=== PATIENT | female | born 1995 | race Caucasian/White ===

== ENCOUNTER 2016-06-02 20:16 | Day surgery (SDC) | payer BC ==
[~2016-06-02] VITALS: Ht 157.5 cm; Wt 77.7 kg
[~2016-06-02 20:16] MED LIST: LEVO500T69 PO; NAPR-243 PO; ONDA-42 SL; PHEN200T27 PO; SULF-222 PO
[2016-06-02] MEDS ORDERED: OXCA150T3 PO (21:00)
[2016-06-02] MEDS ORDERED: SERT50TA2 PO (21:00)
[2016-06-02] MEDS ORDERED: KETOROLAC 30 MG/ML VIAL IVP STA (21:16)
[2016-06-02 21:19] LABS: BILIRUBIN,URINE NEGATIVE (NEGATIVE); KETONES,URINE NEGATIVE (NEGATIVE); LEUKOCYTE ESTERASE ,URINE 1+ (NEGATIVE); NITRITE,URINE NEGATIVE (NEGATIVE); PH,URINE 6 (5-9); PROTEIN,URINE 1+ (NEGATIVE); UROBILINOGEN,URINE NORMAL (NORMAL)
[2016-06-02 21:24] LABS: WBC,URINE 0-2 /HPF
[2016-06-02 21:28] LABS: BASOPHILS % (AUTO) 0 % (0-10); EOSINOPHILS % (AUTO) 0 % (0-10); LYMPHOCYTES # (AUTO) 1.2 X 10^3 (1.0-4.0); LYMPHOCYTES % (AUTO) 6 % (12-44); MEAN CORPUSCULAR HEMOGLOBIN 32 PG (25-34); MEAN CORPUSCULAR HGB CONC 35 G/DL (32-36); MEAN CORPUSCULAR VOLUME 92 FL (80-99); MEAN PLATELET VOLUME 9.6 FL (7.4-10.4); MONOCYTES % (AUTO) 6 % (0-12); NEUTROPHILS # (AUTO) 16.3 X 10^3 (1.8-7.8); NEUTROPHILS % (AUTO) 88 % (42-75); PLATELET COUNT 243 10^3/uL (130-400); RED BLOOD COUNT 3.94 10^6/uL (4.35-5.85); RED CELL DISTRIBUTION WIDTH 12.8 % (10.0-14.5); WHITE BLOOD COUNT 18.5 10^3/uL (4.3-11.0)
[2016-06-02] MEDS ORDERED: ONDANSETRON 4 MG/2 ML (SDV) Z0FRAN IVP ONE (21:30)
[2016-06-02] MEDS ORDERED: NS 100 ML (IVPB) BAG IV ONE (21:45)
[2016-06-02] MEDS ORDERED: IOHEXOL 350 MG/ML 100 ML (OMNIPAQUE 350) VIAL IV ONE (21:45)
[2016-06-02 21:48] LABS: BAND NEUTROPHILS 0 %; BASOPHILS % (MANUAL) 0 %; EOSINOPHILS % (MANUAL) 0 %; LYMPHOCYTES % (MANUAL) 6 %; NEUTROPHILS % (MANUAL) 93 %
[2016-06-02 21:52] LABS: ALANINE AMINOTRANSFERASE 15 U/L (0-55); ALBUMIN 3.7 G/DL (3.2-4.5); AMYLASE 77 U/L (25-125); ANION GAP 7 MMOL/L (5-14); ASPARTATE AMINO TRANSFERASE 16 U/L (5-34); BILIRUBIN,TOTAL 0.2 MG/DL (0.1-1.0); BLOOD UREA NITROGEN 15 MG/DL (7-18); BUN/CREATININE RATIO 19; CALCIUM 8.8 MG/DL (8.5-10.1); CARBON DIOXIDE 23 MMOL/L (21-32); CHLORIDE 107 MMOL/L (98-107); CREATININE SERUM 0.81 MG/DL (0.60-1.30); GFR ESTIMATED > 60; GLUCOSE 122 MG/DL (70-105); LIPASE 19 U/L (8-78); POTASSIUM 4.3 MMOL/L (3.6-5.0); SODIUM 137 MMOL/L (135-145); TOTAL PROTEIN 5.9 G/DL (6.4-8.2)
--- NOTE | 2016-06-02 21:53 | Diagnostic Imaging Report ---
INDICATION: Pelvic pain. Difficulty breathing. COMPARISON: 06/05/2013. FINDINGS: Visible lungs are clear. No pleural effusion or pneumothorax. Normal cardiomediastinal silhouette and pulmonary vasculature. No free intraperitoneal air. Nonobstructive bowel gas pattern. Small volume of colonic stool. Normal regional skeleton. IMPRESSION: 1. Normal chest. 2. Normal abdomen. Dictated by: Dictated on workstation # [id number]
--- NOTE | 2016-06-02 22:08 | Diagnostic Imaging Report ---
PROCEDURE: CT abdomen and pelvis with contrast, rule out appendicitis. TECHNIQUE: Multiple contiguous axial images were obtained through the abdomen and pelvis after the administration of intravenous contrast. INDICATION: Right-sided pelvic pain. COMPARISON: 06/05/2013. FINDINGS: Lung bases are clear. No pleural or pericardial effusion. There is a small amount of abdominal ascites which has attenuation above simple fluid and likely represents a small amount of hemorrhage. There is a right ovarian cyst with peripheral hyperattenuation measuring 1.4 x 1.0 cm, likely due to ruptured hemorrhagic ovarian cyst. This likely accounts for the fluid seen throughout the abdomen. The appendix is normal and in the expected position in the right lower quadrant. The liver, gallbladder, spleen and pancreas are normal. The adrenals are normal. Stable simple cysts within the left kidney, largest measuring up to 1.8 cm. No obstructive uropathy. The urinary bladder is normal. Uterus is normal in appearance for patient's age. Normal-caliber abdominal aorta. No abdominal or pelvic lymphadenopathy. Normal regional skeleton. IMPRESSION: 1. Findings most compatible with ruptured hemorrhagic right ovarian cyst, with a small amount of fluid and hemorrhage within the pelvis and abdomen. Recommend assessment of patient's beta hCG to rule out ruptured ectopic . 2. Normal appendix. Dictated by: Dictated on workstation # [id number]
[2016-06-03] VITALS: BP 107/60
[2016-06-03] MEDS ORDERED: KETOROLAC 30 MG/ML VIAL IVP PRN (00:30)
[2016-06-03] MEDS ORDERED: ONDANSETRON 4 MG/2 ML (SDV) Z0FRAN IV PRN ×2 (00:30→17:15)
[2016-06-03] MEDS: D5 1/2 NS 1000 ML IV SOLUTION 1,000 ML IV SCH ×2 (00:44→07:55)
--- NOTE | 2016-06-03 01:02 | ED Abdominal Pain ---
General Chief Complaint: Abdominal/GI Problems Stated Complaint: RUPTERED R OVARIAN CYST Nursing Triage Note: pt reports pelvic pain after intercourse around 1600 today. pt reports pain has gotten significantly worse and mainly on the r side that radiates to her back. Sepsis Screen: No Definite Risk Source of Information: Patient History of Present Illness Time Seen By Provider: 21:02 Initial Comments C/O LOWER ABDOMINAL PAIN RADIATING TO RIGHT FLANK AND RUQ AND RIGHT SHOULDER/ SCAPULAR AREA PAIN BEGAN AROUND 1600 TODAY AFTER INTERCOURSE PAIN IS WORSE WITH DEEP BREATHS + NAUSEA,NO VOMITING NORMAL BM TODAY NO URINARY SYMPTOMS NO FEVER NO VAGINAL BLEEDING OR DISCHARGE NO HISTORY OF SIMILAR HAS NOT TAKEN ANYTHING FOR PAIN LMP 05/11/16-. NORMAL. NO CONTROL PT STATES HER NORMAL BP IS ALWAYS LOW, EVEN DOWN TO 80'S / 40'S [employer] ST[employer]ENT Allergies and Home Medications Allergies Coded Allergies: No Known Drug Allergies (Unverified , 06/05/13) Home Medications Oxcarbazepine 150 Mg Tablet, 150 MG PO, (Reported) Sertraline HCl 50 Mg Tablet, 50 MG PO, (Reported) Review of Systems Constitutional: no symptoms reported Respiratory: No Symptoms Reported Cardiovascular: No Symptoms Reported Gastrointestinal: See HPI, Abdominal Pain, Nausea, Denies Vomiting Genitourinary: See HPI, Flank Pain Musculoskeletal: see HPI, back pain, other (RIGHT SHOULDER/SCAPULAR PAIN ) Skin: no symptoms reported Psychiatric/Neurological: No Symptoms Reported Endocrine: No Symptoms Reported Hematologic/Lymphatic: No Symptoms Reported Past Jwwwuid-[id number]-Yqxcmk Hx Patient Social History Alcohol Use: Occasionally Uses Recreational Drug Use: No Smoking Status: Never a Smoker 2nd Hand Smoke Exposure: No Recent Foreign Travel: No Contact w/Someone Who Travel: No Recent Infectious Disease Expo: No Recent Hopitalizations: No Immunizations Up To Date Date of Influenza Vaccine: Dec 17, 2015 Seasonal Allergies Seasonal Allergies: No Surgeries HX Surgeries: No Respiratory Hx Respiratory Disorders: No Cardiovascular Hx Cardiac Disorders: No Neurological Hx Neurological Disorders: No Reproductive System Hx Reproductive Disorders: No Genitourinary Hx Genitourinary Disorders: Yes ("KIDNEY INFECTION" X 1) Genitourinary Disorders: Kidney Infection Gastrointestinal Hx Gastrointestinal Disorders: No Musculoskeletal Hx Musculoskeletal Disorders: No Endocrine Hx Endocrine Disorders: No HEENT HX ENT Disorders: No Cancer Hx Cancer: No Psychosocial Hx Psychiatric Problems: Yes (OCD) Behavioral Health Disorders: Depression Integumentary HX Skin/Integumentary Disorder: No Blood Transfusions Hx Blood Disorders: No Physical Exam Vital Signs VS - Last 72 Hours, by Label 06/02/16 20:52 Temp 99.4 Pulse 97 Resp 20 B/P (MAP) 89/63 Pulse Ox 100 Capillary Refill : Less Than 3 Seconds General Appearance: WD/WN, other (TEARFUL, HOLDING RIGHT FLANK) HEENT: PERRL/EOMI Neck: normal inspection Respiratory: normal breath sounds, no respiratory distress, no accessory muscle use Cardiovascular: regular rate, rhythm, no edema, no JVD, no murmur Gastrointestinal: normal bowel sounds, soft, no organomegaly, no pulsatile mass , No distended, guarding, No rebound, tenderness (DIFFUSE LOWER ABDOMINAL TENDERNESS, RLQ, RIGHT MID ABDOMEN, RIGHT UPPER QUADRANT AND RIGHT FLANK TENDERNESS. ), No hernia, No mass Extremities: normal inspection Back: no vertebral tenderness, CVA tenderness (R) Neurologic/Psychiatric: contracts specialist II-XII nml as tested, no motor/sensory deficits, alert, oriented x 3 Skin: normal color, warm/dry, No rash Progress/Results/Core Measures Results/Orders Lab Results Laboratory Tests Test 06/02/16 21:06 06/02/16 21:20 Range/Units Urine Color YELLOW Urine Clarity CLEAR Urine pH 6 5-9 Urine Specific [place] 1.025 H 1.016-1.022 Urine Protein 1+ H NEGATIVE Urine Glucose (UA) NEGATIVE NEGATIVE Urine Ketones NEGATIVE NEGATIVE Urine Nitrite NEGATIVE NEGATIVE Urine Bilirubin NEGATIVE NEGATIVE Urine Urobilinogen NORMAL NORMAL MG/DL Urine Leukocyte Esterase 1+ H NEGATIVE Urine RBC (Auto) NEGATIVE NEGATIVE Urine RBC NONE /HPF Urine WBC 0-2 /HPF Urine Crystals PRESENT H /LPF Urine Amorphous Sediment MOD VANGIE URATES H /LPF Urine Bacteria TRACE /HPF Urine Casts NONE /LPF Urine Mucus SMALL H /LPF Urine Culture Indicated NO White Blood Count 18.5 H 4.3-11.0 10^3/uL Red Blood Count 3.94 L 4.35-5.85 10^6/uL Hemoglobin 12.6 11.5-16.0 G/DL Hematocrit 36 35-52 % Mean Corpuscular Volume 92 80-99 FL Mean Corpuscular Hemoglobin 32 25-34 PG Mean Corpuscular Hemoglobin Concent 35 32-36 G/DL Red Cell Distribution Width 12.8 10.0-14.5 % Platelet Count 243 130-400 10^3/uL Mean Platelet Volume 9.6 7.4-10.4 FL Neutrophils (%) (Auto) 88 H 42-75 % Lymphocytes (%) (Auto) 6 L 12-44 % Monocytes (%) (Auto) 6 0-12 % Eosinophils (%) (Auto) 0 0-10 % Basophils (%) (Auto) 0 0-10 % Neutrophils # (Auto) 16.3 H 1.8-7.8 X 10^3 Lymphocytes # (Auto) 1.2 1.0-4.0 X 10^3 Monocytes # (Auto) 1.0 0.0-1.0 X 10^3 Eosinophils # (Auto) 0.0 0.0-0.3 10^3/uL Basophils # (Auto) 0.0 0.0-0.1 10^3/uL Neutrophils % (Manual) 93 % Lymphocytes % (Manual) 6 % Monocytes % (Manual) 1 % Eosinophils % (Manual) 0 % Basophils % (Manual) 0 % Band Neutrophils 0 % Blood Morphology Comment NORMAL Sodium Level 137 135-145 MMOL/L Potassium Level 4.3 3.6-5.0 MMOL/L Chloride Level 107 98-107 MMOL/L Carbon Dioxide Level 23 21-32 MMOL/L Anion Gap 7 5-14 MMOL/L Blood Urea Nitrogen 15 7-18 MG/DL Creatinine 0.81 0.60-1.30 MG/DL Estimat Glomerular Filtration Rate > 60 BUN/Creatinine Ratio 19 Glucose Level 122 H 70-105 MG/DL Calcium Level 8.8 8.5-10.1 MG/DL Total Bilirubin 0.2 0.1-1.0 MG/DL Aspartate Amino Transf (AST/SGOT) 16 5-34 U/L Alanine Aminotransferase (ALT/SGPT) 15 0-55 U/L Alkaline Phosphatase 67 40-136 U/L Total Protein 5.9 L 6.4-8.2 G/DL Albumin 3.7 3.2-4.5 G/DL Amylase Level 77 25-125 U/L Lipase 19 8-78 U/L Human Chorionic Gonadotropin, Quant < 5 <5 MIU/ML My Orders Orders - AIME GARNICA DO Urine Bedside (06/02/16 21:01) Ua Culture If Indicated (06/02/16 21:01) Saline Lock/Iv-Start (06/02/16 21:16) Amylase (06/02/16 21:16) Cbc With Automated Diff (06/02/16 21:16) Comprehensive Metabolic Panel (06/02/16 21:16) Lipase (06/02/16 21:16) Saline Lock/Iv-Start (06/02/16 21:16) Ondansetron Injection (Zofran Injectio (06/02/16 21:30) Ketorolac Injection (Toradol Injection) (06/02/16 21:16) Manual Differential (06/02/16 21:20) Ct Abd/Pelv W (Appendicitis) (06/02/16 21:30) Acute Abd Series (06/02/16 21:30) Iohexol Injection (Omnipaque 350 Mg/Ml 1 (06/02/16 21:45) Ns (Ivpb) (Sodium Chloride 0.9% Ivpb Bag (06/02/16 21:45) Hcg,Quantitative (06/02/16 22:20) Medications Given in ED Current Medications Medications Dose Ordered Sig/Hyacinth Route Start Time Stop Time Status Last Admin Dose Admin Iohexol 100 ml ONCE ONCE IV 06/02/16 21:45 06/02/16 22:00 DC 06/02/16 21:46 100 ML Ondansetron HCl 4 mg ONCE ONCE IVP 06/02/16 21:30 06/02/16 21:31 DC 06/02/16 22:01 4 MG Sodium Chloride 80 ml ONCE ONCE IV 06/02/16 21:45 06/02/16 22:00 DC 06/02/16 21:46 80 ML Vital Signs/I&O Vital Sign - Last 12Hours 06/02/16 20:52 Temp 99.4 Pulse 97 Resp 20 B/P (MAP) 89/63 Pulse Ox 100 Blood Pressure Mean: 72 Point of Care Testing Urine -Bedside: Negative Progress Note : Progress Note PAIN EASED SOMEWHAT WITH TORADOL AND PT IS NO LONGER CRYING, BUT STILL WITH PAIN IN RIGHT FLANK AND RIGHT SHOULDER/SCAPULAR AREA NO DETERIORATION IN PT'S CONDITION DURING ER STAY Diagnostic Imaging Comments ACUTE ABDOMEN XRAYS--NO ACUTE PROCESS CT ABDOMEN/PELVIS--RUPTURED / HEMORRHAGIC RIGHT OVARIAN CYST, WITH FLUID AND HEMORRHAGE IN ABDOMEN AND PELVIS PER RADIOLOGIST REPORTS @ 0 Reviewed: Reviewed by Me Departure Communication Progress Notes 2225--SPOKE WITH DR. GIRON, ACCEPTS PT FOR ADMIT. ORDERS NOTED. Impression Impression: Primary Impression: RUPTURED HEMORRHAGIC RIGHT OVARIAN CYST Disposition: ADMITTED INPATIENT Condition: Improved Decision to Admit Reason: Admit from ER (General) Decision to Admit/Date: Jun 02, 2016 Time/Decision to Admit Time: 22:30 Departure-Patient Inst. Referrals: [facility] (PCP) Primary Care Physician AIME GARNICA DO Jun 03, 2016 01:02
[2016-06-03 04:00] VITALS: BP 95/51
[2016-06-03 04:43] LABS: BASOPHILS % (AUTO) 0 % (0-10); EOSINOPHILS # (AUTO) 0.1 10^3/uL (0.0-0.3); EOSINOPHILS % (AUTO) 1 % (0-10); LYMPHOCYTES # (AUTO) 2.1 X 10^3 (1.0-4.0); LYMPHOCYTES % (AUTO) 19 % (12-44); MEAN CORPUSCULAR HEMOGLOBIN 31 PG (25-34); MEAN CORPUSCULAR HGB CONC 34 G/DL (32-36); MEAN CORPUSCULAR VOLUME 93 FL (80-99); MONOCYTES # (AUTO) 0.8 X 10^3 (0.0-1.0); MONOCYTES % (AUTO) 8 % (0-12); NEUTROPHILS # (AUTO) 7.9 X 10^3 (1.8-7.8); NEUTROPHILS % (AUTO) 73 % (42-75); PLATELET COUNT 199 10^3/uL (130-400); RED BLOOD COUNT 3.42 10^6/uL (4.35-5.85); RED CELL DISTRIBUTION WIDTH 12.8 % (10.0-14.5); WHITE BLOOD COUNT 10.9 10^3/uL (4.3-11.0)
[2016-06-03] MEDS ORDERED: OXCA600T PO (08:33)
[2016-06-03] MEDS ORDERED: ACET-2267 PO (08:33)
[2016-06-03] MEDS ORDERED: SERT100T8 PO (08:33)
--- NOTE | 2016-06-03 08:38 | Short Stay Summary ---
History of Present Illness History of Present Illness Reason for visit/HPI right lower quadrant pain Ruptured ovarian cyst Patient presented to the ED after acute onset of right lower quadrant pain. She had workup in the ED and found to have a ruptured ovarian cyst. She has had stable vital signs. Hemoglobin initially 12.6 and WBC 18 (no fever). However, this am, after fluids, WBC 10 and HGB 10.7. Suspect this is from dilution. She states the pain started after having intercourse and was sharp. When I called to check on her this am at 630, she was feeling better and was allowed to eat. However, upon my evaluation at 0815, she was in tears, stated that the pain had abruptly increased when she got up to void and now is extremely painful. She has had one dose Toradol which had held her pain until recently. She does not have bleeding, nausea or emesis. Now states the pain is more subphrenic and is hard to take a deep breath. She is not on anything for contraception. Date of Admission Jun 02, 2016 at 22:30 Date of Discharge 05/24/16 Attending Physician William Giron DO Admitting Physician Center,[facility] Consult Allergies and Home Medications Allergies Coded Allergies: No Known Drug Allergies (Unverified , 06/05/13) Home Medications Acetaminophen 500 Mg Tablet, 1,000 MG PO Q6H PRN for PAIN, (Reported) TAKES 2 (500MG) TABLETS Oxcarbazepine 600 Mg Tablet, 1,200 MG PO DAILY, (Reported) TAKES 2 (600MG) TABLETS Sertraline HCl 100 Mg Tablet, 200 MG PO DAILY, (Reported) TAKES 2 (100MG) TABLETS Past Qrdqpaa-[id number]-Anwnqv Hx Patient Social History Marrital Status: single Number of Children: 0 Employed/Student: unemployed Alcohol Use: Occasionally Uses Recreational Drug Use: No Smoking Status: Never a Smoker 2nd Hand Smoke Exposure: No Physical Abuse Screen: No Sexual Abuse: No Recent Foreign Travel: No Contact w/other who traveled: No Recent Hopitalizations: No Recent Infectious Disease Expo: No Immunizations Up To Date Tetanus Booster (TDap): Unknown Date of Influenza Vaccine: Dec 17, 2015 Seasonal Allergies Seasonal Allergies: No Surgeries HX Surgeries: No Respiratory Hx Respiratory Disorders: No Cardiovascular Hx Cardiovascular Disorders: No Neurological Hx Neurological Disorders: No Reproductive System : No Hx Reproductive Disorders: No Genitourinary Hx Genitourinary Disorders: Yes ("KIDNEY INFECTION" X 1) Genitourinary Disorders: Kidney Infection Gastrointestinal Hx Gastrointestinal Disorders: No Musculoskeletal Hx Musculoskeletal Disorders: No Endocrine Hx Endocrine Disorders: No HEENT HX ENT Disorders: No Cancer Hx Cancer: No Psychosocial Hx Psychiatric Problems: Yes (OCD) Behavioral Health Disorders: Depression Integumentary HX Skin/Integumentary Disorder: No Blood Transfusions Hx Blood Disorders: No Constitutional: no symptoms reported EENTM: no symptoms reported Respiratory: other (pain with deep breathing) Cardiovascular: no symptoms reported Gastrointestinal: RLQ, abdominal pain (RLQ), other (now radiating to back, right flank and subphrenic) Genitourinary: no symptoms reported : No Control/STD Prophylaxis: None Musculoskeletal: back pain (right upper) Skin: no symptoms reported Psychiatric/Neurological: No Symptoms Reported All Other Systems Reviewed Negative Unless Noted: Yes (Negative excepted noted.) Physical Exam Vital Signs Vital Sign - Last 12Hours 06/02/16 06/03/16 20:52 00:00 Temp 99.4 Pulse 97 Resp 20 B/P (MAP) 89/63 Pulse Ox 100 O2 Delivery Room Air Capillary Refill : Less Than 3 Seconds General Appearance: Mild Distress Respiratory: Chest Non Tender, Lungs Clear, Normal Breath Sounds, No Accessory Muscle Use, No Respiratory Distress Cardiovascular: Regular Rate, Rhythm Gastrointestinal: Guarding (voluntary), Tenderness (right lower quadrant. No rebound) Genital/Rectal: Other (no repeated due to patient request) Clinical Quality Measures DVT/VTE Risk/Contraindication: VTE Present on Admission: No RFS Level Per Nursing on Admit: 0=No Risk/No VTE PPX Short Stay Diagnosis Discharge Diagnosis-Short Stay Admission Diagnosis: Right lower quadrant pain Hemorrhagic ruptured ovarian cyst Final Discharge Diagnosis: Same Plan - Due to increasing pain, will plan laparoscopy with right ovarian cystectomy today. However, as she was feeling better this am, will plan to repeat hgb at 12. If continuing to drop will expedite surgery. However, she was better this am and ate breakfast. Surgery scheduled 8 hours after eating. She is currently NPO. Will continue to treat the pain with morphine and toradol and do LS with possible right ovarian cystectomy, OIP on 06/03/16. Risks include bleeding, infection, injury to bowel, bladder and ureter. Prophylactic SCDs and Antibiotics. No allergies Conclusion Labs Laboratory Tests 06/02/16 21:06: Urine Color YELLOW, Urine Clarity CLEAR, Urine pH 6, Urine Specific [place] 1.025H, Urine Protein 1+H, Urine Glucose (UA) NEGATIVE, Urine Ketones NEGATIVE, Urine Nitrite NEGATIVE, Urine Bilirubin NEGATIVE, Urine Urobilinogen NORMAL, Urine Leukocyte Esterase 1+H, Urine RBC (Auto) NEGATIVE, Urine RBC NONE, Urine WBC 0-2, Urine Crystals PRESENTH, Urine Amorphous Sediment MOD VANGIE URATESH, Urine Bacteria TRACE, Urine Casts NONE, Urine Mucus SMALLH, Urine Culture Indicated NO 06/02/16 21:20: White Blood Count 18.5H, Red Blood Count 3.94L, Hemoglobin 12.6, Hematocrit 36, Mean Corpuscular Volume 92, Mean Corpuscular Hemoglobin 32, Mean Corpuscular Hemoglobin Concent 35, Red Cell Distribution Width 12.8, Platelet Count 243, Mean Platelet Volume 9.6, Neutrophils (%) (Auto) 88H, Lymphocytes (%) (Auto) 6L , Monocytes (%) (Auto) 6, Eosinophils (%) (Auto) 0, Basophils (%) (Auto) 0, Neutrophils # (Auto) 16.3H, Lymphocytes # (Auto) 1.2, Monocytes # (Auto) 1.0, Eosinophils # (Auto) 0.0, Basophils # (Auto) 0.0, Neutrophils % (Manual) 93, Lymphocytes % (Manual) 6, Monocytes % (Manual) 1, Eosinophils % (Manual) 0, Basophils % (Manual) 0, Band Neutrophils 0, Blood Morphology Comment NORMAL, Sodium Level 137, Potassium Level 4.3, Chloride Level 107, Carbon Dioxide Level 23, Anion Gap 7, Blood Urea Nitrogen 15, Creatinine 0.81, Estimat Glomerular Filtration Rate > 60, BUN/Creatinine Ratio 19, Glucose Level 122H, Calcium Level 8.8, Total Bilirubin 0.2, Aspartate Amino Transf (AST/SGOT) 16, Alanine Aminotransferase (ALT/SGPT) 15, Alkaline Phosphatase 67, Total Protein 5.9L, Albumin 3.7, Amylase Level 77, Lipase 19, Human Chorionic Gonadotropin, Quant < 5 06/03/16 04:00: White Blood Count 10.9, Red Blood Count 3.42L, Hemoglobin 10.7L, Hematocrit 32L , Mean Corpuscular Volume 93, Mean Corpuscular Hemoglobin 31, Mean Corpuscular Hemoglobin Concent 34, Red Cell Distribution Width 12.8, Platelet Count 199, Mean Platelet Volume 10.0, Neutrophils (%) (Auto) 73, Lymphocytes (%) (Auto) 19 , Monocytes (%) (Auto) 8, Eosinophils (%) (Auto) 1, Basophils (%) (Auto) 0, Neutrophils # (Auto) 7.9H, Lymphocytes # (Auto) 2.1, Monocytes # (Auto) 0.8, Eosinophils # (Auto) 0.1, Basophils # (Auto) 0.0 WILLIAM GIRON DO Jun 03, 2016 08:38
[2016-06-03 08:45] VITALS: BP 103/55
[2016-06-03] MEDS ORDERED: ONDANSETRON 4 MG/2 ML (SDV) Z0FRAN IVP PRN ×2 (09:15→17:30)
[2016-06-03] MEDS ORDERED: morphine INJ 10 MG/ML 1ML (SYR OR VIAL) IV PRN ×2 (09:15→17:15)
[2016-06-03] MEDS: IBUPROFEN 600 MG (MOTRIN) TAB PO SCH ×3 (09:23→18:38)
[2016-06-03] MEDS ORDERED: LACTATED RINGERS 1,000 ML IV PRN (11:58)
[2016-06-03 12:00] VITALS: BP 101/56
[2016-06-03 12:09] LABS: BASOPHILS % (AUTO) 0 % (0-10); EOSINOPHILS % (AUTO) 0 % (0-10); LYMPHOCYTES # (AUTO) 1.4 X 10^3 (1.0-4.0); LYMPHOCYTES % (AUTO) 14 % (12-44); MEAN CORPUSCULAR HEMOGLOBIN 32 PG (25-34); MEAN CORPUSCULAR HGB CONC 34 G/DL (32-36); MEAN CORPUSCULAR VOLUME 94 FL (80-99); MEAN PLATELET VOLUME 9.8 FL (7.4-10.4); MONOCYTES # (AUTO) 0.8 X 10^3 (0.0-1.0); MONOCYTES % (AUTO) 7 % (0-12); NEUTROPHILS % (AUTO) 78 % (42-75); PLATELET COUNT 184 10^3/uL (130-400); RED BLOOD COUNT 3.26 10^6/uL (4.35-5.85); RED CELL DISTRIBUTION WIDTH 12.8 % (10.0-14.5); WHITE BLOOD COUNT 10.2 10^3/uL (4.3-11.0)
[2016-06-03] MEDS ORDERED: CATHETER FLUSH 10 ML SYR IV PRN (12:30)
[2016-06-03] MEDS: KETOROLAC 30 MG/ML VIAL IVP SCH ×2 (12:48→18:38)
[2016-06-03] MEDS ORDERED: ceFAZolin INJECTION 1,000 MG in NS (IVPB) 50 ML IV NR (13:15)
[2016-06-03] MEDS ORDERED: fentaNYL INJECTION 100 MCG/2 ML AMP ONE (14:40)
[2016-06-03] MEDS ORDERED: LACTATED RINGERS 1,000 ML IV ONE ×2 (14:40→16:23)
[2016-06-03] MEDS ORDERED: proPOfol 200 MG/20 ML (DIPRIVAN) VIAL IV ONE (14:40)
[2016-06-03] MEDS ORDERED: SEVOFLURANE (ULTANE) 15 ML INHAL SOLN ONE ×5 (14:40→16:55)
[2016-06-03] MEDS ORDERED: LIDOCAINE PF 2% 10 ML (XYLOCAINE) AMP ONE (14:40)
[2016-06-03] MEDS ORDERED: MIDAZOLAM 2 MG/2 ML (VERSED) VIAL ONE (14:40)
[2016-06-03] MEDS ORDERED: MEPERIDINE (DEMEROL) INJ 50 MG/ML ONE (15:12)
[2016-06-03] MEDS ORDERED: morphine INJ 10 MG/ML 1ML (SYR OR VIAL) ONE (15:12)
[2016-06-03] MEDS ORDERED: PROMETHAZINE INJ 25 MG/ML (PHENERGAN) AMP ONE (15:13)
[2016-06-03] MEDS ORDERED: BUPIVACAINE 0.25% 30 ML (SENSORCAINE) VIAL ONE (15:23)
[2016-06-03] MEDS ORDERED: ONDANSETRON 4 MG/2 ML (SDV) Z0FRAN ONE (16:23)
[2016-06-03] MEDS ORDERED: DEXAMETHASONE PF 10 MG/ML (DECADRON) VIAL ONE (16:23)
[2016-06-03] MEDS ORDERED: KETOROLAC 30 MG/ML VIAL ONE (16:25)
[2016-06-03] MEDS ORDERED: LACTATED RINGERS 1,000 ML IV SCH (16:30)
[2016-06-03] MEDS: MEPERIDINE (DEMEROL) INJ 50 MG/ML IV PRN ×2 (17:05→17:20)
[2016-06-03] MEDS ORDERED: PROMETHAZINE INJ 25 MG/ML (PHENERGAN) AMP IV PRN (17:15)
[2016-06-03] MEDS ORDERED: HYDROcodone/APAP 5 MG/325 MG (LORTAB) TAB PO PRN (17:30)
[2016-06-03] MEDS ORDERED: KETOROLAC 30 MG/ML VIAL IVP SCH (17:30)
[2016-06-03] MEDS ORDERED: IBUP-1773 PO (17:32)
[2016-06-03] MEDS ORDERED: HYDR-3729 PO (17:32)
--- NOTE | 2016-06-03 17:35 | Discharge Inst-Women's Service ---
Discharge Inst-Women's Serv Depart Medication/Instructions New, Converted or Re-Newed RX: RX on Chart Instructions no driving 1 week no lifting over 25 lbs nothing per vagina Final Diagnosis ruptured right ovarian cyst hematoperitoneum laparoscopy with cautery of right ovarian cyst evacuation of hematoperitoneum Consults/Follow Up Additional Follow Up: Yes (June 12 at 8:15. [address] [facility]. 2nd floor of [facility]) Activity Activity: Activity as Tolerated Driving Instructions: No Driving for 1 Week NO SMOKING: NO SMOKING Nothing Inside Vagina: No Douching, No [place], No Tampons Diet Discharge Diet: No Restrictions Symptoms to Report to : Bleeding Excessive, Fever Over 101 Degrees F, Vaginal Bleeding Increase, Vaginal Discharge Foul For Any Problems or Questions: Contact Your Physician Skin/Wound Care Infection Signs and Symptoms: Increased Redness, Foul Odor of Wound, Increased Drainage, Skin Itchy or Has a Rash, Increased Swelling, Temperature Above 101 F Stitches/Felipe/Dermabond: Dermabond Bathing Instructions: WILLIAM Maldonado DO Jun 03, 2016 17:35
--- NOTE | 2016-06-03 17:41 | Operative Report ---
Operative Report Date of Procedure/Surgery Jun 03, 2016 Surgeon (s) WILLIAM GIRON DO Tonsorial Artist (s): None Post-Operative Diagnosis Ruptured right ovarian cyst hematoperitoneum abdominopelvic pain Procedure Performed Laparoscopy with evacuation of hematoperitoneum, cautery of right ovarian cyst/ovary Description of Procedure Anesthesia Type: General Estimated blood loss (mL): 500 ml hematoperitoneum Specimen(s) collected/removed N Description of the Procedure With informed consent patient was taken to the operating room where general anesthesia was found to be adequate. She was prepped and draped in the usual sterile fashion in the dorsolithitomy position. A catheter was placed in the bladder and a speculum placed in the vagina. The cervix was grasped with a tenaculum and a nuevoStage uterine manipulator was placed to provide a means of manipulation of the uterus. Attention was now turned to the umbilicus. The umbilicus was injected with 0.25 % Marcaine and a 5 mm sin incision was placed. A Veress needle was inserted and intraabdominal placement confirmed with a saline drop test and a drop in pressure. The abdomen was insufflated to a maximum pressure of 15 mmHg. A 5mm camera and trocar was inserted with the assistance of an Optiview. Intra- abdominal placement was again confirmed. 2 additional 5 mm trocars were placed in the left lower quadrant lateral to the rectus muscles and avoiding the inferior epigastric vessels. A survey of the pelvis was done and the patient was placed in Trendelenburg. She was noted to have a large amount of hemoperitoneum/blood in the abdomen and pelvis. I inserted the laparoscopic suction and suctioned 500 mL of blood from the abdomen. At this point then I copiously irrigated until I felt that the blood was completely removed. At this point I examined the ovaries and tubes. He did not initially appear to be any area of active bleeding. However on the right ovary I did note an area of redness. When I examined the back of the ovary and did note a small amount of dripping blood. There did not appear to be a large cyst. However I was able to cauterize the area bleeding and there was likely a cyst that had ruptured. But it small and still within the integrity of the ovary. I cauterized this bleeding and then was pleased with the hemostasis. I then irrigated the pelvis again and made sure that there was no blood up near the liver. At this point the gas was allowed to escape from the umbilical port. I then removed the trocars under direct visualization. And then closed the skin with 4-0 Monocryl and Dermabond. The instruments were removed from the pelvis. Bandages were placed. Sponge lap and instrument counts were correct 2. The patient was awakened and taken to recovery room in stable condition. Findings of the Procedure hematoperitoneum, 500 ml of blood in the pelvis and the abdomen, bleeding from right ovary/cyst Allergies and Home Medications Allergies Coded Allergies: No Known Drug Allergies (Unverified , 06/05/13) Home Medications Acetaminophen 500 Mg Tablet, 1,000 MG PO Q6H PRN for PAIN, (Reported) TAKES 2 (500MG) TABLETS Hydrocodone/Acetaminophen 1 Each Tablet, 1 EACH PO Q6H, #30 Prescribed by: WILLIAM GIRON on 06/03/16 1732 Ibuprofen 600 Mg Tablet, 600 MG PO Q6HR, #40 Prescribed by: WILLIAM GIRON on 06/03/16 1732 Oxcarbazepine 600 Mg Tablet, 1,200 MG PO DAILY, (Reported) TAKES 2 (600MG) TABLETS Sertraline HCl 100 Mg Tablet, 200 MG PO DAILY, (Reported) TAKES 2 (100MG) TABLETS WILLIAM GIRON DO Jun 03, 2016 5:41 pm
[2016-06-03] MEDS ORDERED: morphine INJ 4 MG/ML 1 ML (VIAL/SYRINGE) IV PRN (17:45)
[2016-06-03] MEDS: D5 LR IV SOLUTION 1,000 ML IV SCH (18:14)
[2016-06-03 19:30] VITALS: BP 100/61
[2016-06-04] VITALS: BP 102/52
[2016-06-04] MEDS: KETOROLAC 30 MG/ML VIAL IVP SCH ×2 (00:24→06:28)
[2016-06-04] MEDS: D5 LR IV SOLUTION 1,000 ML IV SCH ×2 (02:19→09:20)
[2016-06-04 04:00] VITALS: BP 110/57
[2016-06-04] MEDS: IBUPROFEN 600 MG (MOTRIN) TAB PO SCH ×2 (06:00)
[2016-06-04 08:17] VITALS: BP 99/64
--- NOTE | 2016-06-04 08:30 | Progress Note-Standard ---
Standard Progress Note Progress Notes/Assess & Plan Progress/Assessment & Plan Patient had surgery last night. Kept over night due to lateness of surgery and pain control. Did well overnight. Vitals stable. DC home today. Vital Signs 06/04/16 08:17 Temp 98.1 Pulse 81 Resp 16 B/P (MAP) 99/64 Pulse Ox 97 O2 Delivery Room Air WILLIAM GIRON DO Jun 04, 2016 08:30
--- OUTSIDE RECORDS SUMMARY | 2016-06-21 05:14 | XMS REPORT | Continuity of Care Document ---
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 Name Role Phone [employer] Unavailable Unavailable Problems Problem Status Onset Date Classification Date Reported Comments Source No data available for this section Problem 08/25/2014 [facility] Medications Allergies, Adverse Reactions, Alerts Immunizations Immunization Date Given Site Status Last Updated Comments Source varicella virus vaccine 08/06/2014 Left Deltoid Varicella<sup>1</sup> Christiana Franks Comment: [08/06/2014] DILULENT MERCK [id number] 05/22 [facility] Results Vital Signs Encounters Location Location Details Encounter Type Encounter Number Reason For Visit Attending Provider ADM Date DC Date Status Source [facility] [id number] Moran Cathryn 08/06/2014 08/07/2014 [facility] [id number] Moran Lockett 08/20/2014 08/21/2014 [facility] Procedures Procedure Code Date Perfomer Comments Source No data available for this section [facility] Plan of Care Social History Assessment and Plan Family History Value Date Source Advance Directives Order Name Results Value Date Source
--- OUTSIDE RECORDS SUMMARY | 2016-06-21 05:15 | XMS REPORT | Continuity of Care Document ---
Author Author [facility] Organization [facility] Address Unknown Phone Unavailable Allergies Active Description Code Type Severity Reaction Onset Reported/Identified Relationship to Patient Clinical Status Yes No Known Drug Allergies [id number] Drug Allergy Unknown N/ A 06/05/2013 Medications Problems Procedures Results Test Result Range Complete urinalysis with reflex to culture - 06/02/16 21:06 Urine color determination YELLOW NRG Urine clarity determination CLEAR NRG Urine pH measurement by test strip 6 5- 9 Specific gravity of urine by test strip 1.025 1.016-1.022 Urine protein assay by test strip, semi-quantitative 1+ NEGATIVE Urine glucose detection by automated test strip NEGATIVE NEGATIVE Erythrocytes detection in urine sediment by light microscopy NEGATIVE NEGATIVE Urine ketones detection by automated test strip NEGATIVE NEGATIVE Urine nitrite detection by test strip NEGATIVE NEGATIVE Urine total bilirubin detection by test strip NEGATIVE NEGATIVE Urine urobilinogen measurement by automated test strip (mass/volume) NORMAL NORMAL Urine leukocyte esterase detection by dipstick 1+ NEGATIVE Automated urine sediment erythrocyte count by microscopy (number/high power field) NONE NRG Automated urine sediment leukocyte count by microscopy (number/high power field ) [HPF] NRG Bacteria detection in urine sediment by light microscopy TRACE NRG Crystals detection in urine sediment by light microscopy PRESENT NRG Casts detection in urine sediment by light microscopy NONE NRG Mucus detection in urine sediment by light microscopy SMALL NRG Complete urinalysis with reflex to culture NO NRG Amorphous sediment detection in urine sediment by light microscopy MOD VANGIE URATES NRG Complete blood count (CBC) with automated white blood cell (WBC) differential - 06/02/16 21:20 Blood leukocytes automated count (number/volume) 18.5 10*3/ uL 4.3-11.0 Blood erythrocytes automated count (number/volume) 3.94 10*6 /uL 4.35-5.85 Venous blood hemoglobin measurement (mass/volume) 12.6 g/dL 11.5-16.0 Blood hematocrit (volume fraction) 36 % 35-52 Automated erythrocyte mean corpuscular volume 92 [foz_us] 80-99 Automated erythrocyte mean corpuscular hemoglobin (mass per erythrocyte) 32 pg 25-34 Automated erythrocyte mean corpuscular hemoglobin concentration measurement ( mass/volume) 35 g/dL 32-36 Automated erythrocyte distribution width ratio 12.8 % 10.0-14.5 Automated blood platelet count (count/volume) 243 10*3/uL 130-400 Automated blood platelet mean volume measurement 9.6 [foz_us ] 7.4-10.4 Automated blood neutrophils/100 leukocytes 88 % 42-75 Automated blood lymphocytes/100 leukocytes 6 % 12-44 Blood monocytes/100 leukocytes 6 % 0-12 Automated blood eosinophils/100 leukocytes 0 % 0-10 Automated blood basophils/100 leukocytes 0 % 0-10 Blood neutrophils automated count (number/volume) 16.3 10*3 1.8-7.8 Blood lymphocytes automated count (number/volume) 1.2 10*3 1.0-4.0 Blood monocytes automated count (number/volume) 1.0 10*3 0.0-1.0 Automated eosinophil count 0.0 10*3/uL 0.0-0.3 Automated blood basophil count (count/volume) 0.0 10*3/uL 0.0-0.1 Blood manual differential performed detection - 06/02/16 21:20 Blood monocytes/100 leukocytes 1 % NRG Manual blood segmented neutrophils/100 leukocytes 93 % NRG Blood band neutrophils/100 leukocytes 0 % NRG Manual blood lymphocytes/100 leukocytes 6 % NRG Manual eosinophils/100 leukocytes in nose 0 % NRG Manual blood basophils/100 leukocytes 0 % NRG Blood erythrocyte morphology finding identification NORMAL [facility] Comprehensive metabolic panel - 06/02/16 21:20 Serum or plasma sodium measurement (moles/volume) 137 mmol/ L 135-145 Serum or plasma potassium measurement (moles/volume) 4.3 mmol/L 3.6-5.0 Serum or plasma chloride measurement (moles/volume) 107 mmol /L 98-107 Carbon dioxide 23 mmol/L 21-32 Serum or plasma anion gap determination (moles/volume) 7 mmol/L 5-14 Serum or plasma urea nitrogen measurement (mass/volume) 15 mg/dL 7-18 Serum or plasma creatinine measurement (mass/volume) 0.81 mg /dL 0.60-1.30 Serum or plasma urea nitrogen/creatinine mass ratio 19 NRG Serum or plasma creatinine measurement with calculation of estimated glomerular filtration rate > NRG Serum or plasma glucose measurement (mass/volume) 122 mg/dL 70-105 Serum or plasma calcium measurement (mass/volume) 8.8 mg/dL 8.5-10.1 Serum or plasma total bilirubin measurement (mass/volume) 0.2 mg/dL 0.1-1.0 Serum or plasma alkaline phosphatase measurement (enzymatic activity/volume) 67 U/L 40-136 Serum or plasma aspartate aminotransferase measurement (enzymatic activity/ volume) 16 U/L 5-34 Serum or plasma alanine aminotransferase measurement (enzymatic activity/volume ) 15 U/L 0-55 Serum or plasma protein measurement (mass/volume) 5.9 g/dL 6.4-8.2 Serum or plasma albumin measurement (mass/volume) 3.7 g/dL 3.2-4.5 Serum or plasma amylase measurement (enzymatic activity/volume) - 06/02/16 21: 20 Serum or plasma amylase measurement (enzymatic activity/volume) 77 U/L 25-125 Lipase - 06/02/16 21:20 Lipase 19 U/L 8-78 Serum or plasma choriogonadotropin measurement (units/volume) - 06/02/16 21:20 Serum or plasma choriogonadotropin measurement (units/volume) < m[iU]/mL <5 Complete blood count (CBC) with automated white blood cell (WBC) differential - 06/03/16 04:00 Blood leukocytes automated count (number/volume) 10.9 10*3/ uL 4.3-11.0 Blood erythrocytes automated count (number/volume) 3.42 10*6 /uL 4.35-5.85 Venous blood hemoglobin measurement (mass/volume) 10.7 g/dL 11.5-16.0 Blood hematocrit (volume fraction) 32 % 35-52 Automated erythrocyte mean corpuscular volume 93 [foz_us] 80-99 Automated erythrocyte mean corpuscular hemoglobin (mass per erythrocyte) 31 pg 25-34 Automated erythrocyte mean corpuscular hemoglobin concentration measurement ( mass/volume) 34 g/dL 32-36 Automated erythrocyte distribution width ratio 12.8 % 10.0-14.5 Automated blood platelet count (count/volume) 199 10*3/uL 130-400 Automated blood platelet mean volume measurement 10.0 [foz_ us] 7.4-10.4 Automated blood neutrophils/100 leukocytes 73 % 42-75 Automated blood lymphocytes/100 leukocytes 19 % 12-44 Blood monocytes/100 leukocytes 8 % 0-12 Automated blood eosinophils/100 leukocytes 1 % 0-10 Automated blood basophils/100 leukocytes 0 % 0-10 Blood neutrophils automated count (number/volume) 7.9 10*3 1.8-7.8 Blood lymphocytes automated count (number/volume) 2.1 10*3 1.0-4.0 Blood monocytes automated count (number/volume) 0.8 10*3 0.0-1.0 Automated eosinophil count 0.1 10*3/uL 0.0-0.3 Automated blood basophil count (count/volume) 0.0 10*3/uL 0.0-0.1 Methicillin resistant Staphylococcus aureus (MRSA) screening culture - 09:28 Methicillin resistant Staphylococcus aureus (MRSA) screening culture NEG NRG Complete blood count (CBC) with automated white blood cell (WBC) differential - 06/03/16 12:00 Blood leukocytes automated count (number/volume) 10.2 10*3/ uL 4.3-11.0 Blood erythrocytes automated count (number/volume) 3.26 10*6 /uL 4.35-5.85 Venous blood hemoglobin measurement (mass/volume) 10.4 g/dL 11.5-16.0 Blood hematocrit (volume fraction) 31 % 35-52 Automated erythrocyte mean corpuscular volume 94 [foz_us] 80-99 Automated erythrocyte mean corpuscular hemoglobin (mass per erythrocyte) 32 pg 25-34 Automated erythrocyte mean corpuscular hemoglobin concentration measurement ( mass/volume) 34 g/dL 32-36 Automated erythrocyte distribution width ratio 12.8 % 10.0-14.5 Automated blood platelet count (count/volume) 184 10*3/uL 130-400 Automated blood platelet mean volume measurement 9.8 [foz_us ] 7.4-10.4 Automated blood neutrophils/100 leukocytes 78 % 42-75 Automated blood lymphocytes/100 leukocytes 14 % 12-44 Blood monocytes/100 leukocytes 7 % 0-12 Automated blood eosinophils/100 leukocytes 0 % 0-10 Automated blood basophils/100 leukocytes 0 % 0-10 Blood neutrophils automated count (number/volume) 8.0 10*3 1.8-7.8 Blood lymphocytes automated count (number/volume) 1.4 10*3 1.0-4.0 Blood monocytes automated count (number/volume) 0.8 10*3 0.0-1.0 Automated eosinophil count 0.0 10*3/uL 0.0-0.3 Automated blood basophil count (count/volume) 0.0 10*3/uL 0.0-0.1 Encounters ACCT No. Visit Date/Time Discharge Status Pt. Type Provider Facility Loc./Unit Complaint [id number] 06/03/2016 00:06:00 2016 10:08:00 [facility] [id number] 06/05/2013 22:46:00 2013 01:20:00 DIS Emergency
--- OUTSIDE RECORDS SUMMARY | 2016-06-21 05:19 | XMS REPORT | Continuity of Care Document ---
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 Name Role Phone [employer] Unavailable Unavailable Problems Problem Status Onset Date Classification Date Reported Comments Source No data available for this section Problem 08/25/2014 [facility] Medications Allergies, Adverse Reactions, Alerts Immunizations Immunization Date Given Site Status Last Updated Comments Source varicella virus vaccine 08/06/2014 Left Deltoid Varicella<sup>1</sup> Christiana Franks Comment: [08/06/2014] DILULENT MERCK [id number] 05/22 [facility] Results Vital Signs Encounters Location Location Details Encounter Type Encounter Number Reason For Visit Attending Provider ADM Date DC Date Status Source [facility] [id number] [place] 08/06/2014 08/07/2014 [facility] [id number] [place] 08/20/2014 08/21/2014 [facility] Procedures Procedure Code Date Perfomer Comments Source No data available for this section [facility] Plan of Care Social History Assessment and Plan Family History Value Date Source Advance Directives Order Name Results Value Date Source
--- OUTSIDE RECORDS SUMMARY | 2016-06-21 05:19 | XMS REPORT | Continuity of Care Document ---
Author Author [facility] Organization [facility] Address Unknown Phone Unavailable Allergies Active Description Code Type Severity Reaction Onset Reported/Identified Relationship to Patient Clinical Status Yes No Known Drug Allergies [id number] Drug Allergy Unknown N/ A 06/05/2013 Medications [...] NRG Blood erythrocyte morphology finding identification NORMAL [facility] Comprehensive metabolic panel - 06/02/16 21:20 Serum [...] Status Pt. Type Provider Facility Loc./Unit Complaint [id number] 06/03/2016 00:06:00 2016 10:08:00 DIS [facility] [id number] 06/05/2013 22:46:00 2013 01:20:00 DIS Emergency
--- OUTSIDE RECORDS SUMMARY | 2016-06-28 06:43 | XMS REPORT | Continuity of Care Document ---
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 Churn Tender Name Role Phone [employer] Unavailable Unavailable Problems Problem Status Onset Date Classification Date Reported Comments Source No data available for this section Problem 08/25/2014 [facility] Medications Allergies, Adverse Reactions, Alerts Immunizations Immunization Date Given Site Status Last Updated Comments Source varicella virus vaccine 08/06/2014 Left Deltoid Varicella<sup>1</sup> Christiana Franks Comment: [08/06/2014] DILULENT MERCK [id number] 05/22 [facility] Results Vital Signs Encounters Location Location Details Encounter Type Encounter Number Reason For Visit Attending Provider ADM Date DC Date Status Source [facility] [id number] [place] 08/06/2014 08/07/2014 [facility] [id number] [facility] 08/20/2014 08/21/2014 [facility] Procedures Procedure Code Date Perfomer Comments Source No data available for this section [facility] Plan of Care Social History Assessment and Plan Family History Value Date Source Advance Directives Order Name Results Value Date Source
--- OUTSIDE RECORDS SUMMARY | 2016-06-28 06:43 | XMS REPORT | Continuity of Care Document ---
Author Author [facility] Organization [facility] Address Unknown Phone Unavailable Allergies Active Description Code Type Severity Reaction Onset Reported/Identified Relationship to Patient Clinical Status Yes No Known Drug Allergies [id number] Drug Allergy Unknown N/ A 06/05/2013 Medications [...] NRG Blood erythrocyte morphology finding identification NORMAL [facility] Comprehensive metabolic panel - [...] Status Pt. Type Provider Facility Loc./Unit Complaint [id number] 06/03/2016 00:06:00 2016 10:08:00 DIS [facility] [id number] 06/05/2013 22:46:00 2013 01:20:00 DIS Emergency
== END 2016-06-04 10:08 | disposition home or self-care (01) ==
LOC: DELPENDDIS → EDUNIT# 20:16 → ER 20:18 → UNDOADMOB 22:30 → 4TH 22:30 → UNDOADMOB 06-03 00:06 → 4TH 06-03 00:06 → SDC 06-03 00:06 → UNDODISOB 06-04 10:08
PROVIDERS: ATTEND Obstetrics & Gynecology
DX: N83.201 Unspecified ovarian cyst, right side (principal)
CPT/HCPCS: 36415; 74022; 74177; 80053; 81000; 82150; 83690; 84702; 84703; 85007; 85025; 85027; 87081; 96374; 96375